=== PATIENT | male | born 1975 | race Hispanic/Latino ===

== ENCOUNTER 2017-12-21 12:36 | Emergency (ER) | payer SELFPAY ==
[2017-12-21] MEDS ORDERED: D5 0.45 NS 1,000 ML IV ONE (13:12)
--- NOTE | 2017-12-21 13:18 | EKG ---
Test Date: 2017-12-21 Test Time: 13:03:36 Underground Conduit Installer: JOHANNA MEASUREMENT RESULTS: Intervals: Rate: 131 NE: 174 QRSD: 94 QT: 286 QTc: 422 [place]: P: 84 NE: 174 QRS: 134 T: 61 INTERPRETIVE STATEMENTS: Sinus tachycardia Right axis deviation Abnormal ECG No previous ECG available for comparison Electronically Signed On 12-21-17 13:17:47 CDT by Melecio Hall
[2017-12-21 13:19] LABS: Absolute Lymphocytes (CBC) 2.5 K/uL (0.7-4.9); Absolute Monocytes 0.8 K/uL (0.1-1.3); Absolute Neutrophil 12.9 K/uL (1.8-8.0); Basophils % 0.8 % (0-1.3); Hematocrit 50.6 % (39.6-49.0); Lymphocytes % 15.1 % (15.3-44.8); MCH 29.2 pg (27.0-35.0); MCV 90.1 fL (80-100); Monocytes % 4.7 % (3.3-12.3); RBC Red Blood Cell Count 5.62 M/uL (4.33-5.43)
--- NOTE | 2017-12-21 13:21 | RAD REPORT ---
EXAM DESCRIPTION: RAD - Chest Single View - 12/21/2017 1:15 pm CLINICAL HISTORY: Chest pain. COMPARISON: None. FINDINGS: Portable technique limits examination quality. The lungs are grossly clear. The heart is normal in size. No displaced fractures. IMPRESSION: No acute intrathoracic process suspected.
[2017-12-21 13:32] LABS: Potassium 3.5 mEq/L (3.6-5.0)
[2017-12-21 13:35] LABS: Albumin 4.6 g/dL (3.2-5.5); Bilirubin Total 0.6 mg/dL (0.3-1.2); Protein, Total 7.5 g/dL (6.0-8.3)
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
== END 2017-12-21 14:32 | disposition home or self-care (01) ==
LOC: ER 12:36
DX: F10.10 Alcohol abuse, uncomplicated (principal)
CPT/HCPCS: 36415; 71045; 80053; 83735; 83880; 84484; 85025; 93005; 96365; 96366; 99284